=== PATIENT | female | born 1980 | race African-American/Black ===

== ENCOUNTER 2017-03-03 04:26 | Emergency (ER) | payer OTHER ==
[~2017-03-03] VITALS: Ht 172.7 cm; Wt 108.0 kg
[2017-03-03] MEDS ORDERED: SORINE 80 MG TA80 M1 PO (04:49)
[2017-03-03] MEDS ORDERED: VITAMIN D2000 UNIT PO (04:50)
[2017-03-03] MEDS ORDERED: TAPAZOLE5 MG PO (04:50)
== END 2017-03-03 05:05 | disposition home or self-care (01) ==
LOC: ER 04:26
DX: M79.661 Pain in right lower leg (principal)